=== PATIENT | male | born 1970 | race African-American/Black ===

== ENCOUNTER 2023-12-11 00:20 | Inpatient (IN) | payer OTHER ==
[2023-12-11 01:41] LABS: BASO % 0.8 % (0-2.0); HEMATOCRIT 28.3 % (35.4-49); HEMOGLOBIN 8.6 GM/dL (11.7-16.9); LYMPH % 36.4 % (8-40); MCH 21.7 pg (25.7-33.7); MCHC 30.4 g/dl (32.0-35.9); MEAN CELL VOLUME 71.4 fl (80-96); MEAN PLT VOLUME 8.2 fl (7.5-11.1); MONO % 8.9 % (3.8-10.2); NEUT % 52.9 % (42.8-82.8); PLATELET COUNT 187 10^3/uL (134-434); RBC 3.96 M/mm3 (4.00-5.60); RDW 20.7 % (11.9-15.9)
[2023-12-11 01:49] LABS: INR 0.94 (0.83-1.09); PROTHROMBIN TIME (PATIENT) 10.9 SEC (9.7-13.0)
[2023-12-11 01:52] LABS: ACTIVATED PTT 25.1 SECONDS (25.2-36.5)
[2023-12-11 02:04] LABS: POTASSIUM 3.6 mmol/L (3.5-5.1)
[2023-12-11 02:06] LABS: CALCIUM 8.1 mg/dL (8.5-10.1)
[2023-12-11 02:08] LABS: ALBUMIN 3.4 g/dl (3.4-5.0); BLOOD UREA NITROGEN 10.4 mg/dL (7-18)
[2023-12-11 02:10] LABS: CREATININE 0.6 mg/dL (0.55-1.3)
[2023-12-11 02:11] LABS: TOT PROT 6.4 g/dl (6.4-8.2)
[2023-12-11 02:12] LABS: BILIRUBIN,TOTAL 0.2 mg/dL (0.2-1)
[2023-12-11 02:14] LABS: LACTIC ACID 2.5 mmol/L (0.4-2.0)
[2023-12-11] MEDS ORDERED: ACETAMINOPHEN INJECTION 100 ML IVPB ONE (02:54)
[2023-12-11] MEDS ORDERED: PANTOPRAZOLE SODIUM 40 MG VIAL ONE (02:54)
[2023-12-11] MEDS: ACETAMINOPHEN 1000 MG/100 ML BAG IVPB ONE (03:11)
[2023-12-11] MEDS: PANTOPRAZOLE SODIUM 40 MG VIAL IVPUSH ONE (03:12)
[2023-12-11] MEDS: DEXTROSE 5%-NORMAL SALINE 500 ML IV ONE (03:26)
[2023-12-11] MEDS: SODIUM CHLORIDE 0.9% 500 ML INFUS.BAG IV ONE (03:35)
[2023-12-11] MEDS: SODIUM CHLORIDE 1,000 ML IV SCH (05:50)
[2023-12-11 05:57] LABS: ANISOCYTOSIS 3+; MACROCYTOSIS 0; ROULEAU 1+; TARGET CELLS 1+
[2023-12-11 07:32] LABS: BASO % 0.7 % (0-2.0); EOS % 1.7 % (0-4.5); HEMATOCRIT 27.9 % (35.4-49); HEMOGLOBIN 8.2 GM/dL (11.7-16.9); LACTIC ACID 2.3 mmol/L (0.4-2.0); MCH 21.4 pg (25.7-33.7); MCHC 29.5 g/dl (32.0-35.9); MEAN CELL VOLUME 72.5 fl (80-96); MEAN PLT VOLUME 8.7 fl (7.5-11.1); MONO % 12.8 % (3.8-10.2); NEUT % 53.8 % (42.8-82.8); PLATELET COUNT 197 10^3/uL (134-434); RBC 3.84 M/mm3 (4.00-5.60); RDW 20.5 % (11.9-15.9); RETICULOCYTES 1.73 % (0.5-1.5); WHITE BLOOD COUNT 5.2 K/mm3 (4.0-10.0)
[2023-12-11 07:37] LABS: POTASSIUM 4.2 mmol/L (3.5-5.1)
[2023-12-11 07:38] LABS: CALCIUM 7.7 mg/dL (8.5-10.1)
[2023-12-11 07:39] LABS: BLOOD UREA NITROGEN 12.4 mg/dL (7-18); MAGNESIUM 2.1 mg/dL (1.8-2.4)
[2023-12-11 07:42] LABS: CREATININE 0.5 mg/dL (0.55-1.3); PHOSPHOROUS 4.1 mg/dL (2.5-4.9)
[2023-12-11 07:43] LABS: BILIRUBIN,TOTAL 0.3 mg/dL (0.2-1); TOT PROT 5.9 g/dl (6.4-8.2)
[2023-12-11 08:58] VITALS: BMI 21.3
[2023-12-11] MEDS ORDERED: PANTOPRAZOLE SODIUM 40 MG VIAL IVPUSH SCH (10:00)
[2023-12-11] MEDS ORDERED: HYDROCORTISONE 2.5% TOPICAL CREAM 30 GM TUBE PR SCH (10:00)
[2023-12-11] MEDS: PANTOPRAZOLE 40 MG TABLET PO SCH (10:12)
[2023-12-11] MEDS: IRON SUCROSE INJECTION 200 MG in SODIUM CHLORIDE 100 ML IVPB ONE (11:00)
[2023-12-11] MEDS: HYDROCORTISONE 2.5% TOPICAL CREAM 30 GM TUBE RC SCH (11:54)
[2023-12-11 14:32] LABS: COCAINE, UR NEGATIVE (NEGATIVE); METHADONE, UR NEGATIVE (NEGATIVE); OPIATES, URI NEGATIVE (NEGATIVE); PHENCYCLIDINE,URINE NEGATIVE (NEGATIVE)
[2023-12-11 14:33] LABS: URINE AMPHETAMINES NEGATIVE (NEGATIVE); URINE BARBITURATES NEGATIVE (NEGATIVE); URINE BENZODIAZEPINES NEGATIVE (NEGATIVE)
[2023-12-11] MEDS: metoPROLOL SUCCINATE 25 MG TAB.SR.24H (FP) PO SCH (21:16)
[2023-12-12 08:51] LABS: HEMATOCRIT 28.5 % (35.4-49); HEMOGLOBIN 8.7 GM/dL (11.7-16.9); MCH 21.5 pg (25.7-33.7); MCHC 30.3 g/dl (32.0-35.9); MEAN CELL VOLUME 70.9 fl (80-96); MEAN PLT VOLUME 8.3 fl (7.5-11.1); PLATELET COUNT 173 10^3/uL (134-434); RBC 4.02 M/mm3 (4.00-5.60); RDW 20.4 % (11.9-15.9); WHITE BLOOD COUNT 4.7 K/mm3 (4.0-10.0)
[2023-12-12 08:58] LABS: POTASSIUM 3.8 mmol/L (3.5-5.1)
[2023-12-12 09:07] LABS: CALCIUM 8.7 mg/dL (8.5-10.1)
[2023-12-12 09:10] LABS: ALBUMIN 3.3 g/dl (3.4-5.0); BLOOD UREA NITROGEN 7.8 mg/dL (7-18); CREATININE 0.6 mg/dL (0.55-1.3)
[2023-12-12 09:12] LABS: BILIRUBIN,TOTAL 0.7 mg/dL (0.2-1); TOT PROT 6.2 g/dl (6.4-8.2)
[2023-12-12] MEDS: IRON SUCROSE INJECTION 200 MG in SODIUM CHLORIDE 100 ML IVPB ONE (09:17)
[2023-12-12 10:30] LABS: ANISOCYTOSIS 3+; MACROCYTOSIS 0
[2023-12-12] MEDS: FOLIC ACID 1 MG TABLET (FP) PO SCH (14:59)
[2023-12-12] MEDS: ASCORBIC ACID 500 MG TABLET (FP) PO SCH (14:59)
[2023-12-12] MEDS: POLYETHYLENE GLYCOL (HEALTHYLAX) 3350 17 GM PACKET PO SCH (15:00)
[2023-12-13] MEDS: IRON SUCROSE INJECTION 200 MG in SODIUM CHLORIDE 100 ML IVPB ONE (09:42)
[2023-12-13 09:47] LABS: HEMATOCRIT 30.7 % (35.4-49); HEMOGLOBIN 9.2 GM/dL (11.7-16.9); MCH 21.6 pg (25.7-33.7); MCHC 30.1 g/dl (32.0-35.9); MEAN CELL VOLUME 71.8 fl (80-96); MEAN PLT VOLUME 8.2 fl (7.5-11.1); PLATELET COUNT 184 10^3/uL (134-434); RBC 4.27 M/mm3 (4.00-5.60); RDW 20.1 % (11.9-15.9); WHITE BLOOD COUNT 5.1 K/mm3 (4.0-10.0)
[2023-12-13 09:56] LABS: POTASSIUM 4.1 mmol/L (3.5-5.1)
[2023-12-13] MEDS ORDERED: IRON SUCROSE INJECTION 200 MG in SODIUM CHLORIDE 100 ML IVPB ONE (10:00)
[2023-12-13 10:03] LABS: CALCIUM 8.8 mg/dL (8.5-10.1)
[2023-12-13 10:04] LABS: ALBUMIN 3.5 g/dl (3.4-5.0); BLOOD UREA NITROGEN 4.7 mg/dL (7-18); MAGNESIUM 2.1 mg/dL (1.8-2.4)
[2023-12-13 10:06] LABS: CREATININE 0.7 mg/dL (0.55-1.3)
[2023-12-13 10:07] LABS: BILIRUBIN,TOTAL 0.4 mg/dL (0.2-1); TOT PROT 6.7 g/dl (6.4-8.2)
[2023-12-13 10:29] VITALS: BP 129/86; PULSE 60; RESP 18; TEMP 98.4
== END 2023-12-13 13:13 | disposition home or self-care (01) | DRG 253 ==
LOC: JER 00:20 → JERBED 04:54 → J7W 06:47
PROVIDERS: ADMIT Internal Medicine; ATTEND Internal Medicine
DX: K92.2 Gastrointestinal hemorrhage, unspecified (principal); K76.0 Fatty (change of) liver, not elsewhere classified; D50.9 Iron deficiency anemia, unspecified; F10.10 Alcohol abuse, uncomplicated; I10 Essential (primary) hypertension; F12.90 Cannabis use, unspecified, uncomplicated; F17.210 Nicotine dependence, cigarettes, uncomplicated; I73.9 Peripheral vascular disease, unspecified
CPT/HCPCS: 36415; 71045-TC-FY; 74177-TC; 80053; 80307; 82272; 82550; 82553; 82728; 83010; 83540; 83550; 83605; 83735; 84100; 84466; 84484; 85025; 85027; 85045; 85610; 85730; 86704; 86803; 86850; 86900; 86901; 87340; 87517; 93005; 93010; 99285-25; J0131; J1756